=== PATIENT | female | born 2005 | race African-American/Black ===

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

== ENCOUNTER → 2023-01-31 | Outpatient (CLI) | payer OTHER, MEDICAID | LOC: M WHC 14:05 | PROVIDERS: ATTEND Obstetrics & Gynecology | DX: Z34.02 Encounter for supervision of normal first pregnancy, second trimester (principal) ==

== ENCOUNTER → 2023-02-13 | Outpatient (CLI) | payer OTHER, MEDICAID ==
[2023-02-13 17:36] LABS: HEMATOCRIT 32.1 % (36.0-47.0); HEMOGLOBIN 10.4 g/dl (12.0-15.5); MEAN CORPUSCULAR HEMOGLOBIN 33.3 pg (27.0-33.0); MEAN CORPUSCULAR HGB CONC 32.4 g/dl (32.0-36.5); MEAN CORPUSCULAR VOLUME 102.9 fl (80.0-96.0); PLATELET COUNT, AUTOMATED 311 10^3/uL (150-450); RED BLOOD COUNT 3.12 10^6/uL (4.00-5.40); WHITE BLOOD COUNT 13.7 10^3/uL (4.0-10.0)
[2023-02-13 19:32] LABS: CHLAMYDIA DNA AMPLIFICATION NEGATIVE (NEGATIVE); GC DNA AMPLIFICATION NEGATIVE (NEGATIVE)
== END ==
LOC: M PLALAB 13:49
PROVIDERS: ATTEND Obstetrics & Gynecology
DX: Z34.02 Encounter for supervision of normal first pregnancy, second trimester (principal)

== ENCOUNTER → 2023-04-12 | Outpatient (REF) | payer OTHER, MEDICAID ==
[~2023-04-12] MED LIST changes: +ACET-1349 PO
== END ==
LOC: M SFHCWAGY 17:01
PROVIDERS: ATTEND Advanced Practice Midwife
DX: Z34.03 Encounter for supervision of normal first pregnancy, third trimester (principal); Z3A.38 38 weeks gestation of pregnancy; N89.8 Other specified noninflammatory disorders of vagina; Z80.0 Family history of malignant neoplasm of digestive organs
CPT/HCPCS: 87070; 87081; G0463

== ENCOUNTER 2023-04-19 22:41 | Inpatient (IN) | payer OTHER, MEDICAID ==
[~2023-04-19] VITALS: Ht 170.2 cm; Wt 85.7 kg
[~2023-04-19 22:41] MED LIST changes: -ACET-1349 PO
[2023-04-19 23:04] VITALS: BP 119/73
[2023-04-19] MEDS ORDERED: ACET-1349 PO (23:06)
[2023-04-19] MEDS ORDERED: HOME MED LIST COMPLETE! XX SCH (23:10)
[2023-04-19] MEDS ORDERED: LIDOCAINE 1% MDV 20ML VIAL INFIL PRN (23:25)
[2023-04-19] MEDS ORDERED: OXYTOCIN DRIP 30 UNITS in IV 1 EA IV PRN (23:25)
[2023-04-20] VITALS (37 sets, daily range): BP systolic 117–163; BP diastolic 59–109; O2SAT 96
[2023-04-20 00:24] LABS: HEMOGLOBIN 9.8 g/dl (12.0-15.5); MEAN CORPUSCULAR HGB CONC 31.6 g/dl (32.0-36.5); MEAN CORPUSCULAR VOLUME 98.1 fl (80.0-96.0); PLATELET COUNT, AUTOMATED 308 10^3/uL (150-450); RED BLOOD COUNT 3.16 10^6/uL (4.00-5.40); WHITE BLOOD COUNT 15.9 10^3/uL (4.0-10.0)
[2023-04-20] MEDS ORDERED: OXYTOCIN DRIP 30 UNITS in IV 1 EA IV SCH (01:30)
[2023-04-20] MEDS ORDERED: LR 1,000 ML IV SCH (01:30)
[2023-04-20] MEDS ORDERED: NALOXONE INJ 0.4MG/1ML VIAL IV PRN (07:25)
[2023-04-20] MEDS ORDERED: ePHEDrine SULFATE 25 MG/5 ML(5MG/ML) SYRINGE IVP PRN (07:25)
[2023-04-20] MEDS ORDERED: EPIDURAL/PCA KEYS XX PRN (07:25)
[2023-04-20] MEDS ORDERED: LR 500 ML IV PRN (07:25)
[2023-04-20] MEDS ORDERED: ONDANSETRON 4MG 2ML VIAL IV PRN (07:25)
[2023-04-20] MEDS ORDERED: diphenhydrAMINE 50MG/ML VIAL IV PRN (07:25)
[2023-04-20] MEDS ORDERED: FENTANYL/ROPIVACAINE/NACL BAG 100 ML EPIDURAL SCH (07:25)
[2023-04-20 10:31] LABS: CORD GAS ABE V -2.9; CORD GAS HCO3 V 22.6 MMOL/L; CORD GAS O2 SAT V 77.7 %; CORD GAS PCO2 V 41.9 mmHg; CORD GAS PH V 7.349 UNITS; CORD GAS PO2 V 34.3 mmHg; CORD GAS SBC V 21.6 MMOL/L; CORD GAS TCO2 V 23.8 MMOL/L
[2023-04-20 10:33] LABS: CORD GAS ABE A -8.4; CORD GAS HCO3 A 18.9 MMOL/L; CORD GAS O2 SAT A 82.5 %; CORD GAS PCO2 A 45.2 mmHg; CORD GAS PH A 7.24 UNITS; CORD GAS PO2 A 39.1 mmHg; CORD GAS SBC A 17.5 MMOL/L; CORD GAS TCO2 A 20.3 MMOL/L
[2023-04-20] MEDS ORDERED: ANUSOL HC CREAM 30GM TOP PRN (11:10)
[2023-04-20] MEDS ORDERED: IBUPROFEN 600MG TAB PO PRN (11:10)
[2023-04-20] MEDS ORDERED: RHOGAM 300MCG (1500IU) INJ IM SCH (11:10)
[2023-04-20] MEDS ORDERED: DIBUCAINE 1% OINTMENT 30GM TOP PRN (11:10)
[2023-04-20] MEDS ORDERED: ACETAMINOPHEN TAB 650MG DOSE (2X325MG) PO PRN (11:10)
[2023-04-20] MEDS ORDERED: IBUPROFEN 800 MG TAB PO PRN (11:10)
[2023-04-20] MEDS ORDERED: DOCUSATE SODIUM 100MG CAPSULE PO PRN (11:10)
[2023-04-20] MEDS ORDERED: ACETAMINOPHEN 500 MG TAB PO PRN (11:10)
[2023-04-20] MEDS ORDERED: METHYLERGONOVINE MALEATE 0.2 MG TAB PO PRN (11:10)
[2023-04-21] MEDS ORDERED: ACETAMINOPHEN 325MG/10.15ML UDC PO PRN ×2 (07:45)
[2023-04-21] MEDS: PRENATAL VITAMINS CHEWABLE TABLET PO SCH (07:56)
[2023-04-21] MEDS: FERROUS SULFATE 325MG TAB PO SCH (10:48)
[2023-04-21 18:00] VITALS: BP 114/64; O2SAT 98
[2023-04-22 06:00] VITALS: BP 118/66; O2SAT 95
[2023-04-22] MEDS ORDERED: IBUP-1022 PO (08:34)
[2023-04-22] MEDS ORDERED: COLA100C5 PO (08:34)
[2023-04-22] MEDS ORDERED: ACET325S6 PO (08:34)
[2023-04-22] MEDS: PRENATAL VITAMINS CHEWABLE TABLET PO SCH (08:48)
[2023-04-22] MEDS: FERROUS SULFATE 325MG TAB PO SCH (08:48)
[2023-04-22] MEDS ORDERED: MEASLES,MUMPS,RUBELLA VACCINE INJ (MMR-II) SC.IMMUN ONE (09:00)
[2023-04-22] MEDS ORDERED: BOOSTRIX VACCINE (TETANUS/DIPHTH/ACEL. PERTUSSIS) 0.5ML SYR IM.IMMUN ONE (10:00)
== END 2023-04-22 13:53 | disposition home or self-care (01) | DRG 807 ==
LOC: M LDO 22:41 → M LDI 23:19 → M OBS 04-20 15:00
PROVIDERS: ADMIT Specialist; ATTEND Advanced Practice Midwife
PROC: 10E0XZZ Delivery of Products of Conception, External Approach (ICD-10-PCS; principal; 2023-04-20)
PROC: 0KQM0ZZ Repair Perineum Muscle, Open Approach (ICD-10-PCS; 2023-04-20)
DX: O99.324 Drug use complicating childbirth (principal); Z37.0 Single live birth; O70.1 Second degree perineal laceration during delivery; Z3A.39 39 weeks gestation of pregnancy; F12.20 Cannabis dependence, uncomplicated

== ENCOUNTER 2023-05-27 01:40 | Emergency (ER) | payer OTHER, MEDICAID ==
[~2023-05-27] VITALS: Ht 167.6 cm; Wt 70.2 kg
[~2023-05-27 01:40] MED LIST changes: +ACET-1349 PO; +ACET325S6 PO; +COLA100C5 PO; +IBUP-1022 PO
[2023-05-27 01:42] VITALS: BP 137/84; TEMP 99.1; O2SAT 98
[2023-05-27 02:28] LABS: HEMATOCRIT 39.3 % (36.0-47.0); MEAN CORPUSCULAR HEMOGLOBIN 28.8 pg (27.0-33.0); MEAN CORPUSCULAR HGB CONC 30.5 g/dl (32.0-36.5); MEAN CORPUSCULAR VOLUME 94.5 fl (80.0-96.0); PLATELET COUNT, AUTOMATED 333 10^3/uL (150-450); RED BLOOD COUNT 4.16 10^6/uL (4.00-5.40); WHITE BLOOD COUNT 9.2 10^3/uL (4.0-10.0)
[2023-05-27 02:44] LABS: AMPHETAMINES LEVEL URINE NEGATIVE (NEGATIVE); BARBITURATES URINE NEGATIVE (NEGATIVE); BENZODIAZEPINES URINE NEGATIVE (NEGATIVE); COCAINE METABOLITE URINE NEGATIVE (NEGATIVE); METHADONE URINE NEGATIVE (NEGATIVE); OPIATES URINE NEGATIVE (NEGATIVE); PHENCYCLIDINE URINE NEGATIVE (NEGATIVE)
[2023-05-27 02:46] LABS: CANNABINOIDS URINE POSITIVE (NEGATIVE); ETHYL ALCOHOL (ETHANOL) < 0.003 % (0.000-0.010)
[2023-05-27 02:48] LABS: ALBUMIN 4.1 G/DL (3.2-5.2); ALKALINE PHOSPHATASE 104 U/L (46-116); ALT/SGPT 11 U/L (7.0-40); AST/SGOT 10 U/L (<34); BILIRUBIN,DIRECT 0.2 MG/DL (<0.4); BILIRUBIN,TOTAL 0.6 MG/DL (0.3-1.2); BLOOD UREA NITROGEN 6 MG/DL (9-23); CALCIUM LEVEL 9.4 MG/DL (8.5-10.1); CARBON DIOXIDE LEVEL 25 MMOL/L (20-31); CHLORIDE LEVEL 108 MMOL/L (98-107); CREATININE FOR GFR 0.74 MG/DL (0.55-1.30); GLUCOSE, FASTING 95 MG/DL (60-100); SALICYLATE LEVEL < 3.0 MG/DL (<30); SODIUM LEVEL 140 MMOL/L (136-145); TOTAL PROTEIN 7.3 G/DL (5.7-8.2)
[2023-05-27 02:50] LABS: THYROID STIMULATING HORMONE 2.876 uIU/ML (0.48-4.17)
== END 2023-05-27 04:48 | disposition home or self-care (01) ==
LOC: M ED 01:40
DX: F32.A Depression, unspecified (principal); F17.210 Nicotine dependence, cigarettes, uncomplicated; F12.10 Cannabis abuse, uncomplicated; Z79.1 Long term (current) use of non-steroidal anti-inflammatories (NSAID); Z79.899 Other long term (current) drug therapy

== ENCOUNTER → 2024-10-08 | Outpatient (REF) | payer MEDICAID, OTHER ==
[2024-10-08 16:40] LABS: Trichomonas vaginalis (AMP) NOT DETECTED (NEGATIVE)
[2024-10-08 17:04] LABS: GC DNA AMPLIFICATION NEGATIVE (NEGATIVE)
== END ==
LOC: M PLALAB 11:05
PROVIDERS: ATTEND Advanced Practice Midwife
DX: Z12.4 Encounter for screening for malignant neoplasm of cervix (principal)

== ENCOUNTER → 2025-02-06 | Outpatient (REF) | payer MEDICAID, OTHER ==
[~2025-02-06] MED LIST changes: -IBUP-1022 PO; +IBUP600T42 PO
[2025-02-06 16:43] LABS: IRON (FE) 110 UG/DL (50-170); PERCENT SATURATION 32.4 % (13.2-45.0)
[2025-02-06 16:45] LABS: FREE T4 0.92 NG/DL (0.89-1.76); THYROID PEROXIDASE ANTIBODY < 28.0 U/ML (<60.0)
[2025-02-06 16:49] LABS: BASO # 0.0 10^3/uL (0.0-0.2); BASO % 0.5 % (0.0-1.0); EOS # 0.5 10^3/uL (0.0-0.5); EOS % 6.9 % (0.0-3.0); LYMPH # 2.9 10^3/uL (1.5-5.0); LYMPH % 37.6 % (24.0-44.0); MONO # 0.6 10^3/uL (0.0-0.8); MONO % 7.6 % (2.0-8.0); NEUTROPHILS # 3.7 10^3/uL (1.5-8.5); NEUTROPHILS % 47.3 % (36.0-66.0); PLATELET COUNT, AUTOMATED 303 10^3/uL (150-450)
[2025-02-06 17:03] LABS: ESTIMATED AVERAGE GLUCOSE 91.0 MG/DL (60-110)
== END ==
LOC: M LAB REF 16:20
PROVIDERS: ATTEND Pediatrics
DX: D64.9 Anemia, unspecified (principal); R79.89 Other specified abnormal findings of blood chemistry; Z68.32 Body mass index [BMI] 32.0-32.9, adult